=== PATIENT | male | born 1970 | race Caucasian/White ===

== ENCOUNTER 2018-02-26 18:21 | Emergency (ER) | payer SELFPAY | END 2018-02-26 19:44 | disposition home or self-care (01) | LOC: ERS 18:21 | DX: S90.411A Abrasion, right great toe, initial encounter (principal); L03.115 Cellulitis of right lower limb; Z87.891 Personal history of nicotine dependence; W01.0XXA Fall on same level from slipping, tripping and stumbling without subsequent striking against object, initial encounter | CPT/HCPCS: 99283 ==

== ENCOUNTER 2019-11-02 12:28 | Emergency (ER) | payer BC, SELFPAY | END 2019-11-02 13:57 | disposition home or self-care (01) | LOC: ERS 12:28 | DX: J31.0 Chronic rhinitis (principal); Z87.891 Personal history of nicotine dependence | CPT/HCPCS: 87804; 99283 ==

== ENCOUNTER 2021-03-11 13:15 | Emergency (ER) | payer OTHER, BC ==
[2021-03-11] MEDS ORDERED: Ketorolac Tromethamine 30 MG/ML VIAL ONE (16:09)
== END 2021-03-11 16:37 | disposition home or self-care (01) ==
LOC: ERS 13:15
DX: S16.1XXA Strain of muscle, fascia and tendon at neck level, initial encounter (principal); S20.211A Contusion of right front wall of thorax, initial encounter; S30.1XXA Contusion of abdominal wall, initial encounter; Z87.891 Personal history of nicotine dependence; V29.9XXA Motorcycle rider (driver) (passenger) injured in unspecified traffic accident, initial encounter
CPT/HCPCS: 71045; 96372; J1885